=== PATIENT | female | born 1975 | race Caucasian/White ===

== ENCOUNTER 2020-04-11 02:49 | Emergency (ER) | payer BC ==
[2020-04-11 02:59] VITALS: BP 134/76; PULSE 98; TEMP 98.7; BMI 45.1
[2020-04-11] MEDS ORDERED: ONDANSETRON *ODT* 4 MG TABLET SL ONE (03:06)
[2020-04-11] MEDS ORDERED: ONDANSETRON *ODT* 4 MG TABLET ONE (03:06)
== END 2020-04-11 04:25 | disposition home or self-care (01) ==
LOC: FER 02:49
DX: N23 Unspecified renal colic (principal)
CPT/HCPCS: 74176-TC; 81025; 99285-25; Q0162